=== PATIENT | male | born 1975 | race African-American/Black ===

== ENCOUNTER 2016-11-03 17:31 | Inpatient (IN) | payer OTHER ==
[2016-04-25 12:09] VITALS: Ht 193 cm; Wt 159.2 kg
[~2016-11-03] VITALS: Ht 193 cm; Wt 159.2 kg
[~2016-11-03 17:31] MED LIST: BENA40TA2 PO; FOLI-43 PO; FURO-150 PO; GABA300S PO; LEVO50TA8 PO; POTA20TA83 PO; SERT-131 PO; THIA100T73 PO; TOPXL100 PO; [UNRECOGNIZED DRUG - CODE] PO
[2016-11-03 17:36] VITALS: BP 136/96; PULSE 137; RESP 18; TEMP 98; O2SAT 97
--- NOTE | 2016-11-03 17:40 | NUR ---
Arrived via [facility] ambulance having consumed 2 4 locos drink and a bottle of voodka. Pt is poorly verbal and has blood around his mouth with a abraison to tongue. Patient to ER [facility] to [facility] for evaluation. Side rails up. Report given to Luc LANDEROS.
--- NOTE | 2016-11-03 18:15 | NUR ---
Ewa HALEYP at bedside for exam.
--- NOTE | 2016-11-03 18:25 | NUR ---
Patient moved to bed 3. Patient shirt removed. Patient refused to be fully undressed.
[2016-11-03] MEDS ORDERED: FOLIC ACID 1 MG, THIAMINE HCL 100 MG, MAGNESIUM SULFATE 1 GM, MVI 10 ML in NACL 0.9% 1,... IV ONE ×2 (18:45→23:00)
[2016-11-03 18:56] LABS: BILIRUBIN,URINE NEGATIVE (NEGATIVE); BLOOD, URINE 1+ (NEGATIVE); CLARITY/URINE CLEAR (CLEAR); COLOR,URINE YELLOW (YELLOW); GLUCOSE,URINE NEGATIVE (NEGATIVE); KETONES,URINE NEGATIVE (NEGATIVE); LEUKOCYTE ESTERASE ,URINE NEGATIVE (NEGATIVE); NITRITE, URINE NEGATIVE (NEGATIVE); PROTEIN URINE 1+ (NEGATIVE); UROBILINOGEN,URINE 0.2 (0.2-1.0)
[2016-11-03 19:13] LABS: BACTERIA,URINE RARE /HPF (None Seen); BARBITURATE, URINE NEGATIVE (NEG <=200); BENZODIAZEPINE, URINE NEGATIVE (NEG <=150); CANNABINOID, URINE NEGATIVE (NEG <=50); COCAINE, URINE NEGATIVE (NEG <=150); METHAMPHETAMINES SCREEN,URINE NEGATIVE (NEG <=500); MUCUS,URINE None Seen /LPF (None Seen); OPIATE, URINE NEGATIVE (NEG <=100); PHENCYCLIDINE SCREEN,URINE NEGATIVE (NEG <=25); RBC,URINE 0-3 /HPF (0-3); UR TRICYCLIC ANTIDEPRESSANTS NEGATIVE (NEG <=300); URINE AMPHETAMINE NEGATIVE (NEG <=500); URINE METHADONE NEGATIVE (NEG <=200); URINE OXYCODONE SCREEN NEGATIVE (NEG <=100); URINE PROPOXYPHENE SCREEN NEGATIVE (NEG <=300); WBC,URINE 0-3 /HPF (0-3)
--- NOTE | 2016-11-03 19:15 | NUR ---
Patient is more verbal now with slurred speech. Patient states he is hungry. Meal tray called for.
[2016-11-03 19:22] LABS: BASOPHILS % (AUTO) 0.5 % (0.0-2.0); HEMATOCRIT 40.4 % (36-54); HEMOGLOBIN 13.5 g/dL (14.0-18.0); LYMPHOCYTES # (AUTO) 3.6 K/uL (1.0-5.5); LYMPHOCYTES % (AUTO) 46.8 % (20.5-51.5); MEAN CORPUSCULAR HEMOGLOBIN 26 pg (27-31); MEAN CORPUSCULAR HGB CONC 33 % (32-36); MEAN CORPUSCULAR VOLUME 79 fL (79.0-98.0); MONOCYTES # (AUTO) 0.4 K/uL (0.0-1.0); MONOCYTES % (AUTO) 4.8 % (1.7-9.3); NEUTROPHILS # (AUTO) 3.8 K/uL (1.8-7.7); NEUTROPHILS % (AUTO) 47.9 % (40.0-70.0); PLATELET COUNT (AUTO) 226 K/uL (130-430); RED BLOOD CELL COUNT(AUTO) 5.14 MIL/uL (4.2-6.2); RED CELL DISTRIBUTION WIDTH 14.2 % (9.0-15.0); WHITE BLOOD COUNT (AUTO) 7.8 K/uL (4.8-10.8)
--- NOTE | 2016-11-03 19:25 | NUR ---
Patient endorsed to Jaci LANDEROS.
[2016-11-03 19:37] LABS: CALCIUM 8.1 mg/dL (8.4-11.0); CHLORIDE 102 mmol/L (98-107); CREATININE 1.09 mg/dL (0.55-1.30); GLUCOSE 132 mg/dL (70-99); POTASSIUM 3.5 mmol/L (3.5-5.1); SODIUM SERUM 139 mmol/L (136-145); UREA NITROGEN, BLOOD 12 mg/dL (8-21)
[2016-11-03 19:40] LABS: ANION GAP < 3 (5-15); GFR AFRICAN AMERICAN 97 mL/min (>90)
[2016-11-03 19:41] LABS: PROTHROMBIN TIME 11.3 SECS (9.5-12.5)
[2016-11-03 19:42] LABS: ALANINE AMINOTRANSFERASE 70 U/L (12-78); ALBUMIN 3.7 g/dL (3.4-4.8); ASPARTATE AMINOTRANSFERASE 71 U/L (10-37); SALICYLATE 1 mg/dL (3-30); TOTAL BILIRUBIN 0.4 mg/dL (0.0-1.0); TOTAL PROTEIN, SERUM 7.8 g/dL (6.4-8.3)
[2016-11-03 20:09] LABS: ACETAMINOPHEN < 1 ug/mL (1-30)
[2016-11-03 20:26] LABS: ALCOHOL, BLOOD 419 mg/dL (<10)
--- NOTE | 2016-11-03 21:02 | NUR ---
Pt on stable condition at this time, VSS, pt purposeful, follows commands.
[2016-11-03] MEDS ORDERED: PANTOPRAZOLE SODIUM 40 MG/VIAL (PROTONIX) IVP ONE (21:30)
[2016-11-03] MEDS ORDERED: BACITRACIN 1 GM OINT TP ONE (22:30)
[2016-11-03] MEDS ORDERED: ASPIRIN 325 MG TABLET PO ONE (22:30)
[2016-11-03] MEDS ORDERED: LORazepam 2 MG/ML VIAL IVP PRN (23:00)
[2016-11-03] MEDS ORDERED: NITROGLYCERIN 0.4 MG TAB.SUBL SL PRN (23:00)
[2016-11-03] MEDS ORDERED: MAGNESIUM SULFATE 1 GM/2 ML VIAL ONE (23:06)
[2016-11-03] MEDS ORDERED: THIAMINE HCL 100 MG/ML VIAL ONE (23:06)
[2016-11-03] MEDS ORDERED: FOLIC ACID 5 MG/ML VIAL IV ONE (23:06)
[2016-11-03] MEDS ORDERED: MVI 10 ML VIAL IV ONE (23:06)
--- NOTE | 2016-11-03 23:20 | NUR ---
Initial note Received 41 y.o. male from ER via [facility] for ALOC. Awake, alert & oriented to name, place and year. Denies pain or discomfort. No respiratory distress noted. able to ambulate with steady gait. Banana bag infusing to left ac @ 250 cc/hr. Instructed on plan of care & use of call light if in need of assistance. Verbalized understanding. Call light within reach, bed alarm on.
--- NOTE | 2016-11-03 23:20 | NUR ---
ADMISSION NOTE Received patient from ER via gurney. Patient admitted with diagnosis of Alcohol intoxication. Patient is awake, alert, oriented but sleepy. Patient oriented to hospital room, call light, toileting, pain management and safety-teach back done. Patient informed that Khai will be his nurse and that their room number is 121C. Personal belongings checked and Belongings List documented. Call light within reach.
--- NOTE | 2016-11-03 23:23 | NUR ---
CONSULTATION PAGED REASON FOR CONSULTATION:ELEVATED TROPONIN WAS CONSULT CALLED?Y PERSON WHO WAS NOTIFIED:PATRICK CONSULTING PHYSICIAN:NAPOLEON REEVES DECK ENGINEER SPECIALTY:CARDIO DECK ENGINEER PHONE NUMBER:[phone]
[2016-11-03 23:32] VITALS: BP 135/79; PULSE 79; RESP 19; TEMP 97.6; O2SAT 95
--- NOTE | 2016-11-03 23:32 | NUR ---
Patient will be admitted to care of Dr Mortensen. Admitted to Tele unit. Will go to room 121C. Belongings list completed. Summary report printed. Report given to Admitting RN .
--- NOTE | 2016-11-04 00:01 | NUR ---
CONSULTATION PAGED REASON FOR CONSULTATION:ETOH ABUSE WAS CONSULT CALLED?Y PERSON WHO WAS NOTIFIED:SWAPNIL CONSULTING PHYSICIAN:,SAID OPERATIONS LOGISTICS ANALYST SPECIALTY:PSYCH OPERATIONS LOGISTICS ANALYST PHONE NUMBER:[phone]
[2016-11-04] MEDS: chlordiazePOXIDE HCL 25 MG CAPSULE PO SCH ×2 (00:52→08:20)
[2016-11-04 01:06] VITALS: BP 132/91; PULSE 84; RESP 20; TEMP 98.4; O2SAT 96
--- NOTE | 2016-11-04 02:38 | NUR ---
Ambulation Sitting up on side of bed. Stated wanted to go to toilet. Instructed to notify staff & use of call light if need to get up to assist. Verbalized understanding. Ambulated to toilet with steady gait, denies dizziness. Ambulated back to bed with supervision. Call light placed within reach, bed alarm on.
[2016-11-04 04:29] VITALS: BP 132/91; PULSE 84
--- NOTE | 2016-11-04 05:34 | NUR ---
Anxiety Woke up requesting medication for withdrawals. Ativan 1 mg IV given as ordered.
--- NOTE | 2016-11-04 07:00 | NUR ---
Closing note Resting with eyes closed, easily aroused. no agitation noted. No c/o pain or discomfort. IV fluid infusing to left ac without difficulty. All needs attended to. Call light within reach, fall precautions in place. Will give report to LETI Coppola via [facility] method.
[2016-11-04] MEDS: ALBUTEROL SULFATE 0.083% 2.5 MG/3 ML VIAL.NEB INH SCH ×2 (07:59→11:46)
[2016-11-04 08:00] VITALS: BP 150/96; PULSE 80; RESP 17; TEMP 97.8; O2SAT 97
--- NOTE | 2016-11-04 08:00 | NUR ---
Opening Note: Received report from night nurse. Patient is sleeping in bed. No s/s of distress or sob. Patient is alert and oriented. IV is patent and infusing. Call light in reach, bed in lowest position, and will continue to monitor.
[2016-11-04] MEDS ORDERED: ENOXAPARIN SODIUM 60 MG/0.6 ML SYRINGE SUBCUT SCH (09:00)
[2016-11-04] MEDS ORDERED: ASPIRIN 81 MG TABLET(ECOTRIN) PO SCH (09:00)
--- NOTE | 2016-11-04 10:00 | NUR ---
NOTE: PATIENT IS RESTING COMFORTABLY IN BED. NO S/S OF DISTRESS OR SOB. PATIENT IS ALERT AND ORIENTED, ABLE TO EXPRESS NEEDS, AND ASK FOR ASSISTANCE. CALL LIGHT IN REACH, BED IN LOWEST POSITION, AND WILL CONTINUE TO MONITOR.
[2016-11-04] MEDS ORDERED: IBUPROFEN 600 MG TABLET PO ONE (11:00)
[2016-11-04] MEDS ORDERED: BANANA BAG 1 EA, FOLIC ACID 1 MG, THIAMINE HCL 100 MG, MAGNESIUM SULFATE 1 GM, MVI 10 M... IV SCH ×5 (12:00)
[2016-11-04] MEDS ORDERED: LORazepam 2 MG/ML VIAL IVP PRN (12:00)
--- NOTE | 2016-11-04 12:00 | NUR ---
NOTE: PATIENT IS RESTING COMFORTABLY IN BED. NO S/S OF DISTRESS OR SOB. PATIENT IS ALERT AND ORIENTED, ABLE TO EXPRESS NEEDS, AND ASK FOR ASSISTANCE. DR. KUMAR IN TO SEE PATIENT. CALL LIGHT IN REACH, BED IN LOWEST POSITION, AND WILL CONTINUE TO MONITOR.
[2016-11-04 12:53] VITALS: BP 154/95; PULSE 77; RESP 20; TEMP 97.8; O2SAT 96
--- NOTE | 2016-11-04 13:05 | NUR ---
CONS FOR DR RAGHU BAILON FOR ETOH
--- NOTE | 2016-11-04 14:22 | NUR ---
NOTE: PATIENT IS RESTING IN CHAIR. NO S/S OF DISTRESS OR SOB. PATIENT STATED THAT HE NEEDED TO LEAVE FOR WORK. PAGED DR. KUMAR AND INFORMED AND HE STATED THAT HE WOULD NOT DISCHARGE BUT PATIENT COULD LEAVE AMA IF WANTED. INFORMED PATIENT AND HE STATED THAT HE WOULD LEAVE AMA. PAPER WORK WAS SIGNED AND PATIENT IS WAITING FOR CLOTHES FROM [employer]UR[employer].
--- NOTE | 2016-11-04 14:58 | NUR ---
AMA: Patient does not wish to proceed with medical care recommended by Dr. Flores. Patient given information related to possible complications, up to and including , which could occur as a result of leaving hospital at this time. Patient verbalizes understanding of risks involved leaving against medical advice. Patient has signed AMA form.
--- NOTE | 2016-11-04 15:30 | NUR ---
CANCELATION OF CONSULT COULD NOT BE REACHED. TIRED TO CALL BACK DR. KRISHNAMURTHY OFFICE TO CANCEL CONSULTATION. THERE WAS NO ANSWER. RN INES AND CHARGE NURSE ROSANNA WAS NOTIFIED AND AWARE.
--- NOTE | 2016-11-04 16:04 | NUR ---
CANCELATION OF CONSULT COULD NOT BE REACHED. TRIED TO CALL BACK DR. KRISHNAMURTHY OFFICE TO CANCEL CONSULTATION. NO ONE PICKED UP. CALLED FOUR TIMES TO GET A HOLD OF 'S OFFICE. NO ANSWER. LETI CHACON AND CHARGE NURSE ROSANNA WAS NOTIFIED AND AWARE. Addendum: 11/04/16 at 1618 by Lyudmila Baldwin CNA CANCELATION OF CONSULT COULD NOT BE REACHED. TIRED TO CALL BACK DR. KRISHNAMURTHY OFFICE TO CANCEL CONSULTATION. THERE WAS NO ANSWER. LETI CHACON AND CHARGE NURSE MARTE WAS NOTIFIED AND AWARE.
--- NOTE | 2016-11-04 17:51 | NUR ---
CONSULT CANCELED SPOKE WITH KATIA FROM DR. KRISHNAMURTHY AFTER HOUR LINE TO CANCEL CONSULT.
== END 2016-11-04 14:58 | disposition left against medical advice (07) | DRG 770 ==
LOC: SED 17:31 → STU 22:51
DX: F10.129 Alcohol abuse with intoxication, unspecified (principal); G92 Toxic encephalopathy; I11.9 Hypertensive heart disease without heart failure; F10.10 Alcohol abuse, uncomplicated; E03.9 Hypothyroidism, unspecified; F32.9 Major depressive disorder, single episode, unspecified; E11.9 Type 2 diabetes mellitus without complications; F41.9 Anxiety disorder, unspecified; Z79.899 Other long term (current) drug therapy; E66.01 Morbid (severe) obesity due to excess calories; Z68.41 Body mass index [BMI] 40.0-44.9, adult
CPT/HCPCS: 36415; 70450-TC; 71010; 80053; 80307; 81000-TC; 83880; 84443-TC; 84484; 85025; 85610-TC; 85730-TC; 87081; 93005; 93306; 94640; 96374; 99285; A6209; C9113; G0480; G0481; G0482; J2060; J3411; J3475; J3490; J7030

== ENCOUNTER 2017-02-16 17:01 | Inpatient (IN) | payer MEDICAID, OTHER ==
[~2017-02-16] VITALS: Ht 190.5 cm; Wt 167.8 kg
[2017-02-16 17:06] VITALS: BP_SYST 145
[2017-02-16 17:23] LABS: HEMATOCRIT 39.4 % (36-54); HEMOGLOBIN 13.1 g/dL (14.0-18.0); MEAN CORPUSCULAR HEMOGLOBIN 27 pg (27-31); MEAN CORPUSCULAR HGB CONC 33 % (32-36); MEAN CORPUSCULAR VOLUME 80 fL (79.0-98.0); PLATELET COUNT (AUTO) 201 K/uL (130-430); RED BLOOD CELL COUNT(AUTO) 4.93 MIL/uL (4.2-6.2); RED CELL DISTRIBUTION WIDTH 13.8 % (9.0-15.0)
[2017-02-16 17:34] LABS: ANION GAP 7 (5-15); CALCIUM 7.5 mg/dL (8.4-11.0); CHLORIDE 106 mmol/L (98-107); CREATININE 0.94 mg/dL (0.55-1.30); GLUCOSE 156 mg/dL (70-99); SODIUM SERUM 144 mmol/L (136-145); UREA NITROGEN, BLOOD 17 mg/dL (8-21)
[2017-02-16 17:38] LABS: ALANINE AMINOTRANSFERASE 134 U/L (12-78); ALBUMIN 3.3 g/dL (3.4-4.8); ASPARTATE AMINOTRANSFERASE 104 U/L (10-37); SALICYLATE 1 mg/dL (3-30); TOTAL BILIRUBIN 0.4 mg/dL (0.0-1.0); TOTAL PROTEIN, SERUM 7.1 g/dL (6.4-8.3)
[2017-02-16 17:44] LABS: GFR AFRICAN AMERICAN 115 mL/min (>90)
[2017-02-16 17:52] LABS: ATYPICAL LYMPHOCYTES % 0 % (0-0); BAND % (MANUAL) 0 % (0-6); BASOPHILS % (MANUAL) 0 % (0-2); EOSINOPHILS % (MANUAL) 0 % (0-7); LYMPHOCYTES % (MANUAL) 52 % (20-46); MONOCYTES % (MANUAL) 4 % (0-11)
[2017-02-16] MEDS ORDERED: NACL 0.9% 1,000 ML IV ONE (18:15)
[2017-02-16 18:27] LABS: ACETAMINOPHEN < 1 ug/mL (1-30)
[2017-02-16 21:43] LABS: BILIRUBIN,URINE NEGATIVE (NEGATIVE); BLOOD, URINE NEGATIVE (NEGATIVE); CLARITY/URINE SL HAZY (CLEAR); GLUCOSE,URINE NEGATIVE (NEGATIVE); KETONES,URINE NEGATIVE (NEGATIVE); LEUKOCYTE ESTERASE ,URINE NEGATIVE (NEGATIVE); NITRITE, URINE NEGATIVE (NEGATIVE); PROTEIN URINE 1+ (NEGATIVE)
[2017-02-16 21:57] LABS: BARBITURATE, URINE NEGATIVE (NEG <=200); BENZODIAZEPINE, URINE POSITIVE (NEG <=150); CANNABINOID, URINE NEGATIVE (NEG <=50); COCAINE, URINE NEGATIVE (NEG <=150); METHAMPHETAMINES SCREEN,URINE NEGATIVE (NEG <=500); OPIATE, URINE NEGATIVE (NEG <=100); PHENCYCLIDINE SCREEN,URINE NEGATIVE (NEG <=25); UR TRICYCLIC ANTIDEPRESSANTS NEGATIVE (NEG <=300); URINE AMPHETAMINE NEGATIVE (NEG <=500); URINE METHADONE NEGATIVE (NEG <=200); URINE OXYCODONE SCREEN NEGATIVE (NEG <=100); URINE PROPOXYPHENE SCREEN NEGATIVE (NEG <=300)
[2017-02-16 22:13] LABS: COLOR,URINE YELLOW (YELLOW)
[2017-02-16 22:20] LABS: BACTERIA,URINE FEW /HPF (None Seen); MUCUS,URINE 2+ /LPF (None Seen); RBC,URINE NONE SEEN /HPF (0-3); WBC,URINE 0-3 /HPF (0-3)
[2017-02-17] MEDS ORDERED: ONDANSETRON HCL 4 MG/2 ML VIAL IVP ONE ×2 (00:15→07:15)
[2017-02-17] MEDS ORDERED: FOLIC ACID 1 MG, THIAMINE HCL 100 MG, MAGNESIUM SULFATE 1 GM, MVI 10 ML in NACL 0.9% 1,... IV ONE (07:45)
[2017-02-17] MEDS ORDERED: PROMETHAZINE HCL 25 MG/ML AMP IVP ONE (09:15)
[2017-02-17] MEDS ORDERED: KCL 20 mEq in D5/0.45NS 1000mL 1,000 ML IV ONE (20:15)
[2017-02-17 20:46] LABS: BASOPHILS # (AUTO) 0.1 K/uL (0.0-0.2); BASOPHILS % (AUTO) 0.9 % (0.0-2.0); EOSINOPHILS % (AUTO) 0.4 % (0.0-4.0); HEMOGLOBIN 11.8 g/dL (14.0-18.0); LYMPHOCYTES # (AUTO) 3.7 K/uL (1.0-5.5); LYMPHOCYTES % (AUTO) 42.3 % (20.5-51.5); MEAN CORPUSCULAR HEMOGLOBIN 26 pg (27-31); MEAN CORPUSCULAR HGB CONC 33 % (32-36); MEAN CORPUSCULAR VOLUME 79 fL (79.0-98.0); MONOCYTES # (AUTO) 0.5 K/uL (0.0-1.0); NEUTROPHILS # (AUTO) 4.4 K/uL (1.8-7.7); NEUTROPHILS % (AUTO) 50.4 % (40.0-70.0); PLATELET COUNT (AUTO) 183 K/uL (130-430); RED BLOOD CELL COUNT(AUTO) 4.54 MIL/uL (4.2-6.2); RED CELL DISTRIBUTION WIDTH 13.7 % (9.0-15.0); WHITE BLOOD COUNT (AUTO) 8.7 K/uL (4.8-10.8)
[2017-02-17 21:04] LABS: CALCIUM 7.4 mg/dL (8.4-11.0); CHLORIDE 107 mmol/L (98-107); CREATININE 0.95 mg/dL (0.55-1.30); GLUCOSE 99 mg/dL (70-99); POTASSIUM 3.9 mmol/L (3.5-5.1); SODIUM SERUM 142 mmol/L (136-145); UREA NITROGEN, BLOOD 21 mg/dL (8-21)
[2017-02-17 21:08] LABS: ANION GAP < 3 (5-15); GFR AFRICAN AMERICAN 114 mL/min (>90)
[2017-02-17 22:00] VITALS: BP_SYST 134
[2017-02-17] MEDS ORDERED: KCL 20 mEq in D5/0.45NS 1000mL 1,000 ML IV SCH (22:07)
[2017-02-17 22:15] VITALS: BP_SYST 134
[2017-02-17] MEDS ORDERED: BANANA BAG 1 EA, MVI 10 ML, THIAMINE HCL 100 MG, FOLIC ACID 1 MG, MAGNESIUM SULFATE 1 G... IV SCH ×5 (22:15)
[2017-02-17] MEDS: ZOLPIDEM TARTRATE 5 MG TABLET PO PRN (22:28)
[2017-02-17] MEDS ORDERED: PANTOPRAZOLE SODIUM 40 MG TAB PO ONE (22:30)
[2017-02-17] MEDS ORDERED: cloNIDine HCL 0.1 MG TABLET PO PRN (22:45)
[2017-02-17 23:00] VITALS: BP_SYST 150
[2017-02-18] VITALS (24 sets, daily range): BP systolic 111–167
[2017-02-18] MEDS: ONDANSETRON HCL 4 MG/2 ML VIAL IVP PRN ×2 (03:57→12:15)
[2017-02-18 07:15] LABS: ALBUMIN 2.8 g/dL (3.4-4.8); CALCIUM 7.6 mg/dL (8.4-11.0); CREATININE 0.91 mg/dL (0.55-1.30); POTASSIUM 3.7 mmol/L (3.5-5.1); THYROID STIMULATING HORMONE 3.39 uIu/mL (0.34-4.82); TOTAL BILIRUBIN 0.7 mg/dL (0.0-1.0); TOTAL PROTEIN, SERUM 6.5 g/dL (6.4-8.3)
[2017-02-18] MEDS: METOPROLOL SUCCINATE 50 MG TAB.SR.24H (TOPROL XL) PO SCH (08:49)
[2017-02-18] MEDS: GABAPENTIN 300 MG CAPSULE PO SCH ×3 (08:50→20:50)
[2017-02-18] MEDS: SERTRALINE HCL 50 MG TABLET PO SCH ×2 (08:50→20:50)
[2017-02-18] MEDS: OXcarbazepine 150 MG TABLET(TRILEPTAL) PO SCH ×2 (08:50→20:50)
[2017-02-18] MEDS: LEVOTHYROXINE SODIUM 0.05 MG TABLET PO SCH (08:50)
[2017-02-18] MEDS: PANTOPRAZOLE SODIUM 40 MG TAB PO SCH (08:50)
[2017-02-18] MEDS: FOLIC ACID 1 MG TABLET PO SCH (08:51)
[2017-02-18] MEDS: THIAMINE HCL 100 MG TABLET PO SCH (08:51)
[2017-02-18] MEDS: BENAZEPRIL HCL 20 MG TABLET (LOTENSIN) PO SCH (08:51)
[2017-02-18] MEDS ORDERED: BENAZEPRIL HCL 20 MG TABLET (LOTENSIN) PO SCH (09:00)
[2017-02-18] MEDS ORDERED: METOPROLOL SUCCINATE 50 MG TAB.SR.24H (TOPROL XL) PO SCH (09:00)
[2017-02-18] MEDS ORDERED: DIPHENOXYLATE HCL/ATROP SULF 2.5 MG TAB PO ONE (11:45)
[2017-02-18] MEDS ORDERED: SERTRALINE HCL 50 MG TABLET ONE (20:51)
[2017-02-18] MEDS ORDERED: OXcarbazepine 150 MG TABLET(TRILEPTAL) ONE (20:54)
[2017-02-19] VITALS (25 sets, daily range): BP systolic 127–162
[2017-02-19 06:47] LABS: CREATININE 0.83 mg/dL (0.55-1.30); POTASSIUM 3.5 mmol/L (3.5-5.1)
[2017-02-19] MEDS: BENAZEPRIL HCL 20 MG TABLET (LOTENSIN) PO SCH (09:02)
[2017-02-19] MEDS: ONDANSETRON HCL 4 MG/2 ML VIAL IVP PRN (09:02)
[2017-02-19] MEDS: PANTOPRAZOLE SODIUM 40 MG TAB PO SCH (09:02)
[2017-02-19] MEDS: METOPROLOL SUCCINATE 50 MG TAB.SR.24H (TOPROL XL) PO SCH (09:03)
[2017-02-19] MEDS: THIAMINE HCL 100 MG TABLET PO SCH (09:03)
[2017-02-19] MEDS: FOLIC ACID 1 MG TABLET PO SCH (09:03)
[2017-02-19] MEDS: GABAPENTIN 300 MG CAPSULE PO SCH ×3 (09:04→21:18)
[2017-02-19] MEDS: LEVOTHYROXINE SODIUM 0.05 MG TABLET PO SCH (09:13)
[2017-02-19] MEDS: SERTRALINE HCL 50 MG TABLET ONE ×2 (11:04→14:11)
[2017-02-19] MEDS: OXcarbazepine 150 MG TABLET(TRILEPTAL) ONE ×2 (11:04→14:11)
[2017-02-19] MEDS: OXcarbazepine 150 MG TABLET(TRILEPTAL) PO SCH ×3 (11:08→21:18)
[2017-02-19] MEDS: SERTRALINE HCL 50 MG TABLET PO SCH ×2 (11:08→21:18)
[2017-02-19] MEDS ORDERED: OXcarbazepine 150 MG TABLET(TRILEPTAL) ONE (14:17)
[2017-02-19] MEDS: ZOLPIDEM TARTRATE 5 MG TABLET PO PRN (23:16)
[2017-02-20] VITALS (11 sets, daily range): BP systolic 120–159
[2017-02-20] MEDS: FOLIC ACID 1 MG TABLET PO SCH (08:31)
[2017-02-20] MEDS: METOPROLOL SUCCINATE 50 MG TAB.SR.24H (TOPROL XL) PO SCH (08:32)
[2017-02-20] MEDS: BENAZEPRIL HCL 20 MG TABLET (LOTENSIN) PO SCH (08:32)
[2017-02-20] MEDS: SERTRALINE HCL 50 MG TABLET PO SCH (08:33)
[2017-02-20] MEDS: PANTOPRAZOLE SODIUM 40 MG TAB PO SCH (08:33)
[2017-02-20] MEDS: THIAMINE HCL 100 MG TABLET PO SCH (08:33)
[2017-02-20] MEDS: LEVOTHYROXINE SODIUM 0.05 MG TABLET PO SCH (08:33)
[2017-02-20] MEDS: GABAPENTIN 300 MG CAPSULE PO SCH (08:33)
[2017-02-20] MEDS: OXcarbazepine 150 MG TABLET(TRILEPTAL) PO SCH (08:34)
== END 2017-02-20 11:00 | disposition home or self-care (01) | DRG 775 ==
LOC: SED 17:01 → SIC 02-17 20:10
PROVIDERS: ADMIT Internal Medicine; ATTEND Internal Medicine
DX: F10.29 Alcohol dependence with unspecified alcohol-induced disorder (principal); R45.851 Suicidal ideations; F32.9 Major depressive disorder, single episode, unspecified; F39 Unspecified mood [affective] disorder; I10 Essential (primary) hypertension; J44.9 Chronic obstructive pulmonary disease, unspecified; E03.9 Hypothyroidism, unspecified; Y90.8 Blood alcohol level of 240 mg/100 ml or more; Z79.899 Other long term (current) drug therapy; Z82.49 Family history of ischemic heart disease and other diseases of the circulatory system; Z83.3 Family history of diabetes mellitus
CPT/HCPCS: 36415; 70450-TC; 71010; 72125-TC; 80048; 80053; 80307; 81000-TC; 82140-TC; 83735-TC; 84443-TC; 84484; 85007; 85025; 85027; 87081; 93005; 96374; 96375; 96376; 99285; G0480; G0481; G0482; J2405; J2550; J3411; J3475; J3490; J7030

== ENCOUNTER 2017-05-14 14:57 | Inpatient (IN) | payer MEDICAID, OTHER ==
[~2017-05-14] VITALS: Ht 193 cm; Wt 175.6 kg
[~2017-05-14 14:57] MED LIST changes: -FURO-150 PO; -POTA20TA83 PO
[2017-05-14 15:18] LABS: BASOPHILS % (AUTO) 0.4 % (0.0-2.0); EOSINOPHILS % (AUTO) 0.1 % (0.0-4.0); HEMATOCRIT 45.5 % (36-54); HEMOGLOBIN 14.3 g/dL (14.0-18.0); LYMPHOCYTES % (AUTO) 36.9 % (20.5-51.5); MEAN CORPUSCULAR HEMOGLOBIN 25 pg (27-31); MEAN CORPUSCULAR HGB CONC 31 % (32-36); MEAN CORPUSCULAR VOLUME 80 fL (79.0-98.0); MONOCYTES # (AUTO) 0.2 K/uL (0.0-1.0); MONOCYTES % (AUTO) 3.5 % (1.7-9.3); NEUTROPHILS # (AUTO) 3.3 K/uL (1.8-7.7); NEUTROPHILS % (AUTO) 59.1 % (40.0-70.0); PLATELET COUNT (AUTO) 260 K/uL (130-430); RED BLOOD CELL COUNT(AUTO) 5.72 MIL/uL (4.2-6.2); WHITE BLOOD COUNT (AUTO) 5.5 K/uL (4.8-10.8)
[2017-05-14 15:30] VITALS: BP_SYST 126
[2017-05-14 15:42] LABS: INR 1.1 (0.80-1.20)
[2017-05-14 15:45] LABS: ANION GAP 10 (5-15); CALCIUM 8.6 mg/dL (8.4-11.0); CHLORIDE 105 mmol/L (98-107); CREATININE 1.03 mg/dL (0.55-1.30); GFR AFRICAN AMERICAN 103 mL/min (>90); GLUCOSE 158 mg/dL (70-99); POTASSIUM 4.1 mmol/L (3.5-5.1); SODIUM SERUM 144 mmol/L (136-145); UREA NITROGEN, BLOOD 14 mg/dL (8-21)
[2017-05-14 15:48] LABS: ALANINE AMINOTRANSFERASE 56 U/L (12-78); ALBUMIN 3.7 g/dL (3.4-4.8); ASPARTATE AMINOTRANSFERASE 49 U/L (10-37); LIPASE 59 U/L (73-393); TOTAL BILIRUBIN 0.3 mg/dL (0.0-1.0)
[2017-05-14 16:07] LABS: ALCOHOL, BLOOD 444 mg/dL (<10)
[2017-05-14 16:08] LABS: ACETAMINOPHEN < 1 ug/mL (1-30)
[2017-05-14] MEDS ORDERED: HYDR25TA4 PO (16:48)
[2017-05-14] MEDS ORDERED: LISI40TA4 PO (16:48)
[2017-05-14] MEDS ORDERED: GABA-529 PO (16:48)
[2017-05-14] MEDS ORDERED: MORPHINE 2 MG/ML INJ. SYRINGE IVP PRN (19:00)
[2017-05-14] MEDS ORDERED: ACETAMINOPHEN 325 MG TABLET PO PRN (19:00)
[2017-05-14] MEDS ORDERED: IPRATROPIUM/ALBUTEROL SULFATE 3 ML AMPUL.NEB INH PRN (19:15)
[2017-05-14 20:05] LABS: FREE T4 (FREE THYROXINE) 0.7 ng/dL (0.6-1.6); PHOSPHORUS 3.5 mg/dL (2.7-4.5); THYROID STIMULATING HORMONE 0.54 uIu/mL (0.34-4.82)
[2017-05-14 20:15] VITALS: BP_SYST 130
[2017-05-14 20:32] LABS: BILIRUBIN,URINE NEGATIVE (NEGATIVE); CLARITY/URINE CLEAR (CLEAR); COLOR,URINE YELLOW (YELLOW); GLUCOSE,URINE NEGATIVE (NEGATIVE); KETONES,URINE NEGATIVE (NEGATIVE); LEUKOCYTE ESTERASE ,URINE NEGATIVE (NEGATIVE); NITRITE, URINE NEGATIVE (NEGATIVE); PH,URINE 6.5 (5.0-8.0); PROTEIN URINE TRACE (NEGATIVE); UROBILINOGEN,URINE 0.2 (0.2-1.0)
[2017-05-14 20:33] LABS: BLOOD, URINE TRACE (NEGATIVE)
[2017-05-14 20:50] LABS: BARBITURATE, URINE NEGATIVE (NEG <=200); BENZODIAZEPINE, URINE POSITIVE (NEG <=150); URINE AMPHETAMINE NEGATIVE (NEG <=500)
[2017-05-14 20:51] LABS: CANNABINOID, URINE NEGATIVE (NEG <=50); COCAINE, URINE NEGATIVE (NEG <=150); METHAMPHETAMINES SCREEN,URINE NEGATIVE (NEG <=500); OPIATE, URINE NEGATIVE (NEG <=100); PHENCYCLIDINE SCREEN,URINE NEGATIVE (NEG <=25); UR TRICYCLIC ANTIDEPRESSANTS NEGATIVE (NEG <=300); URINE METHADONE NEGATIVE (NEG <=200); URINE OXYCODONE SCREEN NEGATIVE (NEG <=100); URINE PROPOXYPHENE SCREEN NEGATIVE (NEG <=300)
[2017-05-14 20:56] LABS: BACTERIA,URINE RARE /HPF (None Seen); MUCUS,URINE None Seen /LPF (None Seen); RBC,URINE 0-3 /HPF (0-3); WBC,URINE 0-3 /HPF (0-3)
[2017-05-14] MEDS: NACL 0.9% 1,000 ML IV SCH (22:53)
[2017-05-14] MEDS: DOCUSATE SODIUM 100 MG CAPSULE PO SCH (22:53)
[2017-05-14] MEDS: IPRATROPIUM/ALBUTEROL SULFATE 3 ML AMPUL.NEB INH SCH (23:05)
[2017-05-14] MEDS: ONDANSETRON HCL 4 MG/2 ML VIAL IVP PRN (23:09)
[2017-05-14 23:11] VITALS: BP_SYST 110
[2017-05-15 00:37] VITALS: BP_SYST 136
[2017-05-15] MEDS: ONDANSETRON HCL 4 MG/2 ML VIAL IVP PRN ×4 (03:29→21:57)
[2017-05-15 05:56] VITALS: BP_SYST 107
[2017-05-15 06:36] LABS: BASOPHILS % (AUTO) 0.5 % (0.0-2.0); EOSINOPHILS % (AUTO) 0.1 % (0.0-4.0); HEMATOCRIT 42.6 % (36-54); HEMOGLOBIN 13.5 g/dL (14.0-18.0); LYMPHOCYTES # (AUTO) 2.8 K/uL (1.0-5.5); LYMPHOCYTES % (AUTO) 37.6 % (20.5-51.5); MEAN CORPUSCULAR HEMOGLOBIN 25 pg (27-31); MEAN CORPUSCULAR HGB CONC 32 % (32-36); MEAN CORPUSCULAR VOLUME 79 fL (79.0-98.0); MONOCYTES # (AUTO) 0.4 K/uL (0.0-1.0); MONOCYTES % (AUTO) 5.4 % (1.7-9.3); NEUTROPHILS # (AUTO) 4.2 K/uL (1.8-7.7); NEUTROPHILS % (AUTO) 56.4 % (40.0-70.0); PLATELET COUNT (AUTO) 275 K/uL (130-430); RED BLOOD CELL COUNT(AUTO) 5.41 MIL/uL (4.2-6.2); RED CELL DISTRIBUTION WIDTH 14.1 % (9.0-15.0); WHITE BLOOD COUNT (AUTO) 7.4 K/uL (4.8-10.8)
[2017-05-15] MEDS: IPRATROPIUM/ALBUTEROL SULFATE 3 ML AMPUL.NEB INH SCH ×2 (07:00→19:39)
[2017-05-15 07:07] LABS: CALCIUM 8.4 mg/dL (8.4-11.0); CREATININE 0.81 mg/dL (0.55-1.30); PHOSPHORUS 4.3 mg/dL (2.7-4.5); POTASSIUM 4.3 mmol/L (3.5-5.1)
[2017-05-15] MEDS: NEPHROVITE, (FOLIC ACID/VITAMIN B COMP W-C 1 TAB) PO SCH (08:13)
[2017-05-15] MEDS: MULTIVITS,CA,MINERALS/IRON/FA 1 TABLET PO SCH (08:15)
[2017-05-15] MEDS: DOCUSATE SODIUM 100 MG CAPSULE PO SCH ×2 (08:19→21:57)
[2017-05-15] MEDS: NACL 0.9% 1,000 ML IV SCH ×2 (09:31→17:14)
[2017-05-15 10:05] VITALS: BP_SYST 138
[2017-05-15] MEDS ORDERED: PROMETHAZINE HCL 25 MG/ML AMP IVP PRN (10:45)
[2017-05-15] MEDS ORDERED: LEVOTHYROXINE SODIUM 0.05 MG TABLET PO ONE (11:15)
[2017-05-15] MEDS ORDERED: SUMAtriptan SUCCINATE 6 MG/0.5 ML VIAL SUBCUT ONE (11:15)
[2017-05-15] MEDS ORDERED: LISINOPRIL 20 MG TABLET PO ONE (11:15)
[2017-05-15] MEDS ORDERED: KETOROLAC TROMETHAMINE 15 MG VIAL IVP PRN (11:15)
[2017-05-15] MEDS ORDERED: METOPROLOL SUCCINATE 50 MG TAB.SR.24H (TOPROL XL) PO ONE (11:15)
[2017-05-15 11:27] VITALS: BP_SYST 164
[2017-05-15 16:15] VITALS: BP_SYST 146
[2017-05-15] MEDS: GABAPENTIN 100 MG CAPSULE PO SCH ×2 (16:19→21:57)
[2017-05-15 20:10] VITALS: BP_SYST 140
[2017-05-15] MEDS: SERTRALINE HCL 50 MG TABLET PO SCH (21:57)
[2017-05-16 00:09] VITALS: BP_SYST 140
[2017-05-16] MEDS ORDERED: ZOLPIDEM TARTRATE 5 MG TABLET PO ONE (00:30)
[2017-05-16] MEDS ORDERED: ZOLPIDEM TARTRATE 5 MG TABLET ONE (00:59)
[2017-05-16 04:15] VITALS: BP_SYST 131
[2017-05-16] MEDS: NACL 0.9% 1,000 ML IV SCH (04:41)
[2017-05-16 06:46] LABS: BASOPHILS % (AUTO) 0.3 % (0.0-2.0); EOSINOPHILS % (AUTO) 0.4 % (0.0-4.0); HEMATOCRIT 41.6 % (36-54); HEMOGLOBIN 13.3 g/dL (14.0-18.0); LYMPHOCYTES # (AUTO) 3.3 K/uL (1.0-5.5); LYMPHOCYTES % (AUTO) 41.9 % (20.5-51.5); MEAN CORPUSCULAR HEMOGLOBIN 25 pg (27-31); MEAN CORPUSCULAR HGB CONC 32 % (32-36); MEAN CORPUSCULAR VOLUME 79 fL (79.0-98.0); MONOCYTES # (AUTO) 0.6 K/uL (0.0-1.0); MONOCYTES % (AUTO) 7.3 % (1.7-9.3); NEUTROPHILS % (AUTO) 50.1 % (40.0-70.0); PLATELET COUNT (AUTO) 227 K/uL (130-430); RED BLOOD CELL COUNT(AUTO) 5.28 MIL/uL (4.2-6.2); RED CELL DISTRIBUTION WIDTH 13.7 % (9.0-15.0); WHITE BLOOD COUNT (AUTO) 7.9 K/uL (4.8-10.8)
[2017-05-16] MEDS ORDERED: LEVOTHYROXINE SODIUM 0.05 MG TABLET PO SCH (07:00)
[2017-05-16] MEDS: IPRATROPIUM/ALBUTEROL SULFATE 3 ML AMPUL.NEB INH SCH (07:26)
[2017-05-16] MEDS ORDERED: IBUP-1480 PO (07:53)
[2017-05-16 07:54] LABS: CALCIUM 8.7 mg/dL (8.4-11.0); CREATININE 0.87 mg/dL (0.55-1.30); PHOSPHORUS 4.7 mg/dL (2.7-4.5); POTASSIUM 3.7 mmol/L (3.5-5.1)
[2017-05-16 08:00] VITALS: BP_SYST 140
[2017-05-16] MEDS: GABAPENTIN 100 MG CAPSULE PO SCH ×2 (08:09→14:30)
[2017-05-16] MEDS: NEPHROVITE, (FOLIC ACID/VITAMIN B COMP W-C 1 TAB) PO SCH (08:09)
[2017-05-16] MEDS: DOCUSATE SODIUM 100 MG CAPSULE PO SCH (08:10)
[2017-05-16] MEDS: MULTIVITS,CA,MINERALS/IRON/FA 1 TABLET PO SCH (08:10)
[2017-05-16] MEDS: SERTRALINE HCL 50 MG TABLET PO SCH (08:20)
[2017-05-16 08:38] LABS: T4 (THYROXINE) 6.3 ug/dL (4.5-12.0)
[2017-05-16] MEDS ORDERED: HYDROCHLOROTHIAZIDE 25 MG TABLET (HCTZ) PO SCH (09:00)
[2017-05-16] MEDS ORDERED: METOPROLOL SUCCINATE 50 MG TAB.SR.24H (TOPROL XL) PO SCH (09:00)
[2017-05-16] MEDS ORDERED: LISINOPRIL 20 MG TABLET PO SCH (09:00)
[2017-05-16 12:30] VITALS: BP_SYST 146
[2017-05-16 12:34] VITALS: BP_SYST 100
[2017-05-16 20:16] LABS: HEMOGLOBIN A1C 6.2 % (4.8-5.6)
[2017-05-16] MEDS ORDERED: ZOLPIDEM TARTRATE 5 MG TABLET PO SCH (21:00)
== END 2017-05-16 14:45 | disposition home or self-care (01) | DRG 775 ==
LOC: SED 14:57 → STU 19:00
PROVIDERS: ADMIT Family Medicine; ATTEND Family Medicine
DX: F10.229 Alcohol dependence with intoxication, unspecified (principal); N17.0 Acute kidney failure with tubular necrosis; G92 Toxic encephalopathy; I42.2 Other hypertrophic cardiomyopathy; I10 Essential (primary) hypertension; G43.909 Migraine, unspecified, not intractable, without status migrainosus; Z79.899 Other long term (current) drug therapy; G62.9 Polyneuropathy, unspecified
CPT/HCPCS: 36415; 70450-TC; 71010; 80048; 80053; 80061; 80307; 81000-TC; 82150-TC; 83036; 83690-TC; 83735-TC; 83880; 84100-TC; 84436; 84439; 84443-TC; 84479; 84484; 85025; 85610-TC; 85730-TC; 93005; 93306; 94640; 99285; A6209; G0480; G0481; G0482; J2405; J3030; J7030